=== PATIENT | female | born 1960 | race Hispanic/Latino ===

== ENCOUNTER 2022-10-03 10:45 | Emergency (ER) | payer OTHER ==
[~2022-10-03] VITALS: Ht 170.2 cm; Wt 135.2 kg
[2022-10-03 11:15] VITALS: BP 150/64
[2022-10-03] MEDS ORDERED: ORPHENADRINE CITRATE 30 MG/ML ML IM ONE (12:00)
[2022-10-03] MEDS ORDERED: KETOROLAC 30MG VIAL (30MG/ML) IM ONE (12:00)
[2022-10-03] MEDS ORDERED: TRAM50TA4 PO (12:47)
[2022-10-03] MEDS ORDERED: IBUP-2070 PO (12:47)
== END 2022-10-03 13:14 | disposition home or self-care (01) ==
LOC: EDH 10:45
DX: S32.028A Other fracture of second lumbar vertebra, initial encounter for closed fracture (principal); E78.00 Pure hypercholesterolemia, unspecified; I10 Essential (primary) hypertension; E11.9 Type 2 diabetes mellitus without complications; Z88.8 Allergy status to other drugs, medicaments and biological substances; W18.39XA Other fall on same level, initial encounter; Y93.89 Activity, other specified; Y92.810 Car as the place of occurrence of the external cause; Y99.8 Other external cause status
CPT/HCPCS: 99284; 72131; 96372; J1885